=== PATIENT | female | born 1995 | race Hispanic/Latino ===

== ENCOUNTER 2017-12-14 14:55 | Emergency (ER) | payer OTHER ==
[2017-12-14] MEDS ORDERED: DEXAMETHASONE SOD PHOSPHATE 10MG/ML 1ML VIAL ONE (15:15)
[2017-12-14] MEDS ORDERED: FAMOTIDINE 20MG TAB 20 MG TAB ONE (15:15)
[2017-12-14] MEDS ORDERED: DIPHENHYDRAMINE HCL 25 MG CAPSULE ONE (15:15)
== END 2017-12-14 16:19 | disposition home or self-care (01) ==
LOC: EDH 14:55
DX: T78.40XA Allergy, unspecified, initial encounter (principal); Z79.2 Long term (current) use of antibiotics; X58.XXXA Exposure to other specified factors, initial encounter
CPT/HCPCS: 96372; 99283; J1100; Q0163